=== PATIENT | male | born 1950 | race Caucasian/White ===

== ENCOUNTER 2018-04-19 20:13 | Emergency (ER) | payer MEDICARE, OTHER ==
[2018-04-19 20:33] VITALS: BP 137/101
--- NOTE | 2018-04-19 20:48 | UC ---
Skin Complaint HPI - HPI Summary HPI Summary: 68 y/o male presents to the urgent care c/o dorsal side of his left foot w/ redness, swelling and pain s/p insect bite 4 days ago. Pain is 7/10at touch. Pt denies fever, numbness or tingling over the toes, SOB, calf pain, abdominal pain, N/V/D. Pt has not taking anything to alleviate symptoms. Pt can can move foot w/o any difficulty. No Hx of MRSA. - History of Current Complaint Chief Complaint: UCSkin Time Seen by Provider: 04/19/18 20:45 Stated Complaint: INSECT BITE/POSS CELLULITIS Hx Obtained From: Patient Onset/Duration: Gradual Onset, Lasting Days - 4 days, Still Present, Worse Since - today Skin Exposure Onset/Duration: Days Ago - 4 days Timing: Constant Onset Severity: Mild Current Severity: Moderate Pain Intensity: 7 Pain Scale Used: 0-10 Numeric Location: Foot (Left) - dorsal side of mid foot Character: Swelling, Redness, Raised Aggravating Factor(s): Touch Alleviating Factor(s): Nothing Associated Signs & Symptoms: Positive: Rash, Tenderness. Negative: Fever, Chills Related History: Possible Reaction to: Insect - Allergy/Home Medications Allergies/Adverse Reactions: Allergies Allergy/AdvReac Type Severity Reaction Status Date / Time haloperidol Allergy Severe Muscle Verified 04/19/18 20:35 spasms insect bite Allergy cellulitis Uncoded 04/19/18 20:45 Home Medications: Home Medications Rosuvastatin Calcium [Crestor] 5 mg PO DAILY 04/19/18 [History Confirmed ] Sildenafil Citrate 50 mg PO SEE INSTRUCTIONS PRN 04/19/18 [History Confirmed ] Review of Systems Skin: Rash - left foot redness and swelling s/p insect bite Eyes: Negative ENT: Negative Respiratory: Negative Cardiovascular: Negative Gastrointestinal: Negative Genitourinary: Negative Motor: Negative Neurovascular: Negative Musculoskeletal: Other: - left foot pain s/p insect bite Neurological: Negative Psychological: Negative Is Patient Immunocompromised?: No All Other Systems Reviewed And Are Negative: Yes PMH/Surg Hx/FS Hx/Imm Hx Previously Healthy: Yes Endocrine History: Dyslipidemia GI/ History: Gastroesophageal Reflux - Surgical History Surgical History: Yes Surgery Procedure, Year, and Place: APPENDECTOMY, tonsils, Left TORN ROTATOR CUFF - Family History Known Family History: Positive: Cardiac Disease, Hypertension, Diabetes - Social History Occupation: Retired Lives: With Family Alcohol Use: Weekly Alcohol Amount: 14 Substance Use Type: None Smoking Status (MU): Former Smoker Type: Cigarettes When Did the Patient Quit Smoking/Using Tobacco: 30 YEARS AGO Physical Exam - Summary Physical Exam Summary: Vital Signs Reviewed: Yes General: well developed, well nourished male sitting in the examining table w/o any apparent distress. Eyes: Positive: Conjunctiva Clear - PERRLA, EOMI ENT: Positive: Normal ENT inspection, Hearing grossly normal, Pharynx normal, TMs normal Neck: Positive: Supple, Nontender, No Lymphadenopathy Respiratory: Positive: Chest nontender, Lungs clear, Normal breath sounds Cardiovascular: Positive: RRR, No Murmur, Pulses Normal Abdomen Description: Positive: Nontender, No Organomegaly, Soft. Negative: CVA Tenderness (R), CVA Tenderness (L) Bowel Sounds: Positive: Present Musculoskeletal: Positive: Strength Intact, ROM Intact, No Edema Neurological Exam: Normal Psychological Exam: Normal Skin: Positive: rashes - Dorsal side of mid left foot w/ erythematous patch w/ indistinct borders, warm to touch, swelling and tender to palpation a central induration w/o any drainage. FROM of left foot and toes, sensation is WNL, capillary refill is brisk, pulses WNL Triage Information Reviewed: Yes Vital Signs: Initial Vital Signs Temp 97.8 F 04/19/18 20:24 Pulse 78 04/19/18 20:24 Resp 18 04/19/18 20:24 BP 137/101 04/19/18 20:24 Pulse Ox 97 04/19/18 20:24 Course/Dx - Course Course Of Treatment: 68 y/o male presents to the urgent care c/o dorsal side of his left foot w/ redness, swelling and pain s/p insect bite 4 days ago. Pain is 7/10at touch. Pt denies fever, numbness or tingling over the toes, SOB, calf pain, abdominal pain, N/V/D. Pt has not taking anything to alleviate symptoms. Pt can can move foot w/o any difficulty. No Hx of MRSA. Hx obtained. Pt w/ left foot Cellulitis s/p insect bite. Pt Rx Bactrim PO and advisede to takje Tylenol PO for pain. Rash demarcated with a skin marker and Advised if rash doubles in size and if she develops fever to go to the ER for further treatment. Pt BP today elevated w/o Hx of HTN. Pt advised to decrease salt in diet and monitor BP at home if it continues to be elevated to f/u with PCP for further management. Pt understood and agreed w/ plan of care. - Differential Diagnoses - Skin Complaint Differential Diagnoses: Abscess, Cellulitis, MRSA, Tick Born Illness, Other - insect bite, - Diagnoses Provider Diagnoses: 1- Left foot cellulitis s/p insect bite. 2- Elevated BP w/ o Hx of HTN Discharge - Sign-Out/Discharge Documenting (check all that apply): Discharge/Admit/Transfer - D/C home - Discharge Plan Condition: Stable Disposition: HOME Prescriptions: Sulfamethox/Trimethoprim DS* [Bactrim DS 800/160 TAB*] 1 tab PO BID #19 tab Patient Education Materials: Cellulitis (ED), Low-Sodium Diet (ED) Referrals: Chava Fairbanks MD [Primary Care Provider] - 3 Days Additional Instructions: 1-Please take full course of Antibiotic. 2- If redness and swelling doubles in size beyond what was demarcated after 48 hrs of taking antibiotic and fever develops please go to the ER immediately. 3-Avoid standing for long periods of time or flexing your foot, keep it elevated and keep wound clean and dry. 4-Please F/u with your PCP in 3 days if not improvement for further evaluation and treatment. 5-Your BP is elevated today. please decrease salt in your diet, monitor BP and if it continues to be elevated please f/u with your PCP for further management - Billing Disposition and Condition Condition: STABLE Disposition: HOME
[2018-04-19] MEDS ORDERED: Sulfamethox/Trimethoprim DS 800/160* TAB PO ONE (20:58)
== END 2018-04-19 21:16 | disposition home or self-care (01) ==
LOC: UCCORT 20:13
DX: S90.862A Insect bite (nonvenomous), left foot, initial encounter (principal); L03.116 Cellulitis of left lower limb; W57.XXXA Bitten or stung by nonvenomous insect and other nonvenomous arthropods, initial encounter; Y93.9 Activity, unspecified; Y92.9 Unspecified place or not applicable; Y99.9 Unspecified external cause status; R03.0 Elevated blood-pressure reading, without diagnosis of hypertension; E78.5 Hyperlipidemia, unspecified; Z87.891 Personal history of nicotine dependence; Z88.8 Allergy status to other drugs, medicaments and biological substances
CPT/HCPCS: 99212; A9270-GY; G0463

== ENCOUNTER 2019-04-19 09:22 | Emergency (ER) | payer MEDICARE, OTHER ==
[2019-04-19 09:44] VITALS: BP 149/86
--- NOTE | 2019-04-19 10:22 | UC ---
UC General HPI - HPI Summary HPI Summary: asthma flare x 2 weeks. inhaler 2 years ago. no cp or fever. - History of Current Complaint Chief Complaint: UCRespiratory Stated Complaint: ASTHMA Time Seen by Provider: 04/19/19 10:14 Hx Obtained From: Patient Onset/Duration: Gradual Onset Timing: Constant Pain Intensity: 0 Associated Signs & Symptoms: Positive: Cough, SOB, Wheezing. Negative: Chest Pain, Fever - Allergy/Home Medications Allergies/Adverse Reactions: Allergies Allergy/AdvReac Type Severity Reaction Status Date / Time haloperidol Allergy Severe Muscle Verified 04/19/19 09:36 spasms insect bite Allergy cellulitis Uncoded 04/19/19 09:36 PMH/Surg Hx/FS Hx/Imm Hx - Additional Past Medical History Additional PMH: allergies Endocrine History: Dyslipidemia Respiratory History: Asthma GI/ History: Gastroesophageal Reflux - Surgical History Surgical History: Yes Surgery Procedure, Year, and Place: APPENDECTOMY, tonsils, Left TORN ROTATOR CUFF - Family History Known Family History: Positive: Cardiac Disease, Hypertension, Diabetes - Social History Alcohol Use: Weekly Alcohol Amount: 3-4 days weekly Substance Use Type: None Smoking Status (MU): Former Smoker Type: Cigarettes When Did the Patient Quit Smoking/Using Tobacco: 30 YEARS AGO - Immunization History Vaccination Up to Date: Yes Review of Systems All Other Systems Reviewed And Are Negative: Yes Constitutional: Negative: Fever Respiratory: Positive: Shortness Of Breath, Cough Cardiovascular: Negative: Palpitations, Chest Pain Physical Exam Triage Information Reviewed: Yes Appearance: Well-Appearing Vital Signs: Initial Vital Signs Temp 97.9 F 04/19/19 09:36 Pulse 75 04/19/19 09:36 Resp 18 04/19/19 09:36 BP 149/86 04/19/19 09:36 Pulse Ox 99 04/19/19 09:36 Vital Signs Reviewed: Yes Eyes: Positive: Conjunctiva Clear ENT: Positive: Pharyngeal erythema, TMs normal. Negative: Nasal congestion, Nasal drainage Neck: Positive: Supple, Nontender, No Lymphadenopathy Respiratory: Positive: No respiratory distress, Decreased breath sounds, Wheezing - occasional. Negative: Crackles, Rhonchi Cardiovascular: Positive: RRR, No Murmur Abdomen Description: Positive: Nontender Musculoskeletal: Positive: ROM Intact Neurological: Positive: Alert Psychological: Positive: Age Appropriate Behavior Skin Exam: Normal Course/Dx - Course Course Of Treatment: BP VISIT AND ILLNESS RELATED, NO HX HTN - Diagnoses Provider Diagnosis: Asthma Discharge - Sign-Out/Discharge Documenting (check all that apply): Patient Departure All imaging exams completed and their final reports reviewed: No Studies - Discharge Plan Condition: Stable Disposition: HOME Prescriptions: Albuterol HFA INHALER* [Ventolin HFA Inhaler*] 2 puff INH Q6H #1 mdi predniSONE [Prednisone 20 MG TAB] 40 mg PO DAILY 5 Days #10 tablet Patient Education Materials: Asthma (DC) Referrals: Chava Fairbanks MD [Primary Care Provider] - 5 Days - Billing Disposition and Condition Condition: STABLE Disposition: Home
== END 2019-04-19 10:29 | disposition home or self-care (01) ==
LOC: UCCORT 09:22
DX: J45.909 Unspecified asthma, uncomplicated (principal); Z87.891 Personal history of nicotine dependence
CPT/HCPCS: 99212; G0463